=== PATIENT | female | born 1970 ===

== ENCOUNTER → 2023-03-06 | Outpatient (CLI) | payer OTHER ==
[2023-03-06 10:23] LABS: Basophils # (auto) 0 10 ^3/uL (0-0.2); Basophils % (auto) 0.8 % (0.0-2.0); Eosinophils # (auto) 0.1 10 ^3/uL (0-0.8); Eosinophils % (auto) 2.9 % (0.0-7.0); Hematocrit 39.1 % (36.0-46.0); Hemoglobin 13.4 g/dL (12.2-16.2); Lymphocytes % (auto) 21.2 % (10.0-50.0); Mean Corpuscular Hemoglobin 31.8 pg (28.0-32.0); Mean Corpuscular Hgb Conc. 34.2 g/dL (32.0-36.0); Mean Corpuscular Volume 93.2 fL (80.0-100.0); Monocytes # (auto) 0.3 10 ^3/uL (0-1.3); Monocytes % (auto) 7.6 % (0.0-12.0); Neutrophils % (auto) 67.5 % (37.0-80.0); Nucleated Red Blood Cells % 0.3 %; Red Cell Distribution Width 12.8 % (11.8-14.3); White Blood Cell 4.5 10^3/uL (4.4-10.8)
[2023-03-06 10:30] LABS: Urine Bacteria FEW /hpf (None Seen); Urine Blood Negative /uL (Negative); Urine Specific Gravity 1.019 (1.001-1.035); Urine WBC <1 /hpf (0 - 5)
[2023-03-06 11:08] LABS: Potassium 3.6 mmol/L (3.5-5.1)
[2023-03-06 11:18] LABS: Albumin 3.2 g/dL (3.4-5.0); BUN/Creatinine Ratio 26.1 (10.0-20.0); Bilirubin, Total 0.4 mg/dL (0.2-1.0); Calcium 8.6 mg/dL (8.5-10.1); Total Protein 7.2 g/dL (6.4-8.2)
== END | disposition home or self-care (01) ==
LOC: LAB 10:00
PROVIDERS: ATTEND Internal Medicine
DX: Z00.00 Encounter for general adult medical examination without abnormal findings (principal); E55.9 Vitamin D deficiency, unspecified; E78.5 Hyperlipidemia, unspecified
CPT/HCPCS: 36415; 80053; 80061; 81001; 82306; 84436; 84443; 85025; 87086

== ENCOUNTER → 2024-10-07 | Outpatient (CLI) | payer OTHER ==
[2024-10-07 12:03] LABS: Urine Bacteria None Seen /hpf (None Seen)
[2024-10-07 12:34] LABS: Basophils # (auto) 0 10 ^3/uL (0-0.2); Basophils % (auto) 0.6 % (0.0-2.0); Eosinophils # (auto) 0.2 10 ^3/uL (0-0.8); Eosinophils % (auto) 2.6 % (0.0-7.0); Lymphocytes # (auto) 1.5 10 ^3/uL (0.4-5.4); Mean Corpuscular Hgb Conc. 34.1 g/dL (32.0-36.0); Mean Corpuscular Volume 93.8 fL (80.0-100.0); Monocytes # (auto) 0.4 10 ^3/uL (0-1.3); Monocytes % (auto) 6.6 % (0.0-12.0); Neutrophils # (auto) 4.1 10 ^3/uL (1.6-8.6); Neutrophils % (auto) 66.2 % (37.0-80.0); Nucleated Red Blood Cells % 0.1 %; Platelet Count (auto) 205 10^3/uL (140-450); Red Blood Cells 4.69 10^6/uL (4.0-5.20); Red Cell Distribution Width 13.2 % (11.8-14.3); White Blood Cell 6.2 10^3/uL (4.4-10.8)
[2024-10-07 12:50] LABS: Urine Blood Negative /uL (Negative); Urine Clarity Clear (Clear); Urine Color Light-Yellow (Yellow); Urine Protein, UAD TRACE (Negative); Urine Specific Gravity 1.014 (1.001-1.035); Urine Squamous Epithelial Cell FEW /hpf (<5); Urine Urobilinogen Normal (Negative); Urine WBC 2 /hpf (0 - 5)
[2024-10-07 13:41] LABS: % Iron Saturation 40.3 % (15-50)
[2024-10-07 13:44] LABS: Free T3 3.26 pg/mL (2.3-4.2); Free T4 (Free Thyroxine) 1.1 ng/dL (0.89-1.76)
[2024-10-07 13:46] LABS: Albumin 4.6 g/dL (3.2-4.8); Alkaline Phosphatase 92 U/L (46-116); Anion Gap 9 (5-15); BUN/Creatinine Ratio 21.1 (10.0-20.0); Blood Urea Nitrogen 15 mg/dL (9-23); Calcium 10.4 mg/dL (8.7-10.4); Carbon Dioxide 27 mmol/L (20-31); Chloride 104 mmol/L (98-107); Creatine Kinase IFCC 59 U/L (34-145); Folate (Folic Acid) 17.84 ng/mL (>5.38); Glucose 95 mg/dL (74-106); Potassium 4.1 mmol/L (3.5-5.1); Sodium 140 mmol/L (136-145)
[2024-10-07 13:47] LABS: Aspartate Aminotransferase 36 U/L (13-40); Bilirubin, Total 0.7 mg/dL (0.2-1.0); HDL Cholesterol 50 mg/dL (40-59)
[2024-10-07 13:48] LABS: Alanine Aminotransferase 55 U/L (7-40); Cholesterol 286 mg/dL (< 200); LDL Cholesterol 223 mg/dL (< 100); Triglycerides 168 mg/dL (< 150)
== END | disposition home or self-care (01) ==
LOC: LAB 11:05
PROVIDERS: ATTEND Internal Medicine
DX: Z00.00 Encounter for general adult medical examination without abnormal findings (principal); E55.9 Vitamin D deficiency, unspecified; E78.5 Hyperlipidemia, unspecified; E66.9 Obesity, unspecified
CPT/HCPCS: 36415; 80053; 80061; 81001; 82306; 82550; 82607; 82728; 82746; 83036; 83540; 83550; 84439; 84443; 84481; 85025; 87086

== ENCOUNTER → 2024-10-07 | Outpatient (CLI) | payer OTHER | END | disposition home or self-care (01) | LOC: LAB 12:20 | PROVIDERS: ATTEND Internal Medicine | DX: Z12.11 Encounter for screening for malignant neoplasm of colon (principal) | CPT/HCPCS: 82270 ==

== ENCOUNTER 2024-10-12 18:24 | Inpatient (IN) | payer OTHER ==
[~2024-10-12] VITALS: Ht 157.5 cm; Wt 93.1 kg
--- NOTE | 2024-10-12 18:52 | ED.PDOC ---
HPI Comments 54y F who presents to the ED for chief complaint of chest pain. Pt states she has been having chest pain since Sep 25, when she states she went to [place] [facility] and diagnosed with altitude sickness. Pt states she has been having intermittent chest pain and states today, she started to have exacerbation of her chest pain and came to the ED for further evaluation. Pt states the pain is located by the L side of her chest, radiating to the L arm and to her lower pelvis area, press ure like in nature, intermittent, with no associated exacerbating or relieving factors. Pt has associated shortness of breath whenever she has been ambulating but otherwise denies any other symptoms at this time. Pt states she saw her PCP for her symptoms and states she had outpatient labs and chest x-ray but states she did not hear back so she came to the ED for further evaluation. Pt otherwise has noted history of HTN and anxiety and states she has not taken anxiety meds in many years. Pt otherwise denies any other symptoms at this time. 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 Family History Family History: Unknown Social History Smoker: Non-Smoker Alcohol: Denies ETOH Use Drugs: Denies Drug Use Lives In: Home Constitutional: denies: chills, diaphoresis, fatigue, fever, malaise, sweats, weakness, others EENTM: denies: blurred vision, double vision, ear bleeding, ear discharge, ear drainage, ear pain, ear ringing, eye pain, eye redness, hearing loss, mouth pain, mouth swelling, nasal discharge, nose bleeding, nose congestion, nose pain, photophobia, tearing, throat pain, throat swelling, voice changes, others Respiratory: reports: shortness of breath; denies: cough, hemoptysis, orthopnea, SOB at rest, SOB with excertion, stridor, wheezing, others Cardiovascular: reports: chest pain; denies: dizzy spells, diaphoresis, Dyspnea on exertion, edema, irregular heart beat, left arm pain, lightheadedness, palpitations, PND, syncope, others Gastrointestinal: denies: abdomen distended, abdominal pain, blood streaked bowels, constipated, diarrhea, dysphagia, difficulty swallowing, hematemesis, melena, nausea, poor appetite, poor fluid intake, rectal bleeding, rectal pain, vomiting, others Genitourinary: denies: abnormal vagina bleeding, burning, dyspareunia, dysuria, flank pain, frequency, hematuria, incontinence, pain, , vagina discharge, urgency, others Neurological: denies: dizziness, fainting, headache, left sided numbness, left sided weakness, numbness, paresthesia, pre-existing deficit, right sided numbness, right sided weakness, seizure, speech problems, tingling, tremors, weakness, others Musculoskeletal: denies: back pain, gout, joint pain, joint swelling, muscle pain, muscle stiffness, neck pain, others Integumetry: denies: bruises, change in color, change in hair/nails, dryness, laceration, lesions, lumps, rash, wounds, others Allergic/Immunocompromised: denies: Difficulty Healing, Frequent Infections, Hives, Itching, others Hematologic/Lymphatic: denies: anemia, blood clots, easy bleeding, easy bruising, swollen glands, others Endocrine: denies: excessive hunger, excessive sweating, excessive thirst, excessive urination, flushing, intolerance to cold, intolerance to heat, u nexplained weight gain, unexplained weight loss, others Psychiatric: denies: anxiety, bipolar disorder, depression, hopeless, panic disorder, schizophrenia, sleepless, suicidal, others All Other Systems: Reviewed and Negative Physical Exam General Appearance: Moderate Distress HEENT: Normal ENT Inspection, Pharynx Normal, TMs Normal Neck: Full Range of Motion, Non-Tender, Normal, Normal Inspection Respiratory: Chest Non-Tender, Lungs Clear, No Accessory Muscle Use, No Respiratory Distress, Normal Breath Sounds Cardiovascular: No Edema, No JVD, No Murmur, No Gallop, Normal Peripheral Pulses, Regular Rate/Rhythm Breast Exam: Deferred Gastrointestinal: No Organomegaly, Non Tender, No Pulsatile Mass, Normal Bowel Sounds, Soft Genitalia: Deferred Pelvic: Deferred Rectal: Deferred Extremities: No calf tenderness, Normal capillary refill, Normal inspection, Normal range of motion, Non-tender, No pedal edema Musculoskeletal : Apperance: Normal Neurologic: Alert, 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 Was a procedure done?: No CP Differential Dx Differential Diagnosis: A-fib, A-Flutter, Angina, Anxiety / Panic Attack, Atrial Dysrhythmia, Electrolyte Disorder Differential Diagnosis: HTN Essential, HTN Accelerated, HTN Encephalopathy, Medical NonCompliance Differential Diagnosis: Chest Wall Pain, Costochondritis X-Ray, Labs, Meds, VS Vital Signs Date Time Temp Pulse Resp B/P (MAP) Pulse Ox O2 Delivery O2 Flow Rate FiO2 10/12/24 18:28 72 10/12/24 18:24 99.4 72 20 187/116 (139) 98 Lab Test 10/12/24 19:32 10/12/24 18:44 Range/Units Troponin I High Sensitivity Pending < 3 L </=34 ng/L White Blood Count 6.9 4.4-10.8 10^3/uL Red Blood Count 4.72 4.0-5.20 10^6/uL Hemoglobin 15.2 12.2-16.2 g/dL Hematocrit 43.4 36.0-46.0 % Mean Corpuscular Volume 91.9 80.0-100.0 fL Mean Corpuscular Hemoglobin 32.1 H 28.0-32.0 pg Mean Corpuscular Hemoglobin Concent 34.9 32.0-36.0 g/dL Red Cell Distribution Width 12.7 11.8-14.3 % Platelet Count 207 140-450 10^3/uL Mean Platelet Volume 8.6 6.9-10.8 fL Neutrophils (%) (Auto) 68.1 37.0-80.0 % Lymphocytes (%) (Auto) 25.7 10.0-50.0 % Monocytes (%) (Auto) 4.5 0.0-12.0 % Eosinophils (%) (Auto) 1.2 0.0-7.0 % Basophils (%) (Auto) 0.5 0.0-2.0 % Neutrophils # (Auto) 4.7 1.6-8.6 10 ^3/uL Lymphocytes # (Auto) 1.8 0.4-5.4 10 ^3/uL Monocytes # (Auto) 0.3 0-1.3 10 ^3/uL Eosinophils # (Auto) 0.1 0-0.8 10 ^3/uL Basophils # (Auto) 0 0-0.2 10 ^3/uL Nucleated Red Blood Cells 0.1 % Sodium Level 141 136-145 mmol/L Potassium Level 3.7 3.5-5.1 mmol/L Chloride Level 106 98-107 mmol/L Carbon Dioxide Level 27 20-31 mmol/L Anion Gap 8 5-15 Blood Urea Nitrogen 13 9-23 mg/dL Creatinine 0.74 0.550-1.02 mg/dL Glomerular Filtration Rate Calc 97 >90 mL/min BUN/Creatinine Ratio 17.6 10.0-20.0 Serum Glucose 100 74-106 mg/dL Calcium Level 10.3 8.7-10.4 mg/dL Patient alert. Complaining of chest pain. Has been having chest pain on and off for a long time. Vitals stable. Anxious. Was given Ativan. Was given aspirin. Blood pressure elevated. Was given clonidine. EKG reviewed does show old changes. Explained to the patient. Time of 1ST Reevaluation: 19:20 Reevaluation 1ST: Unchanged Patient Education/Counseling: Diagnosis, Treatment Family Education/Counseling: No Family Present Departure 1 Departure Time of Disposition: 19:03 Impression: Primary Impression: Hypertensive urgency Additional Impression: Chest pain of unknown etiology Disposition: ADMITTED INPATIENT Admit to: Med Surg Condition: Guarded Critical Care Note Critical Care Time?: Yes (45 min-critical care time only) Stability Stability form required: No Heart Score Heart Score: Heart Score Response (Comments) Value History Slightly Suspicious 0 EKG Normal 0 Age 45-64 1 Risk Factors 1 or 2 risk factors 1 Troponin Normal limit 0 Total 2 I personally scribed for KAL ROSALES MD ([email or web address]) on 10/12/24 at 18:52. Electronically submitted by Meghan Moreno ([email or web address]). KAL ROSALES MD Oct 12, 2024 18:52
[2024-10-12 19:01] LABS: Basophils # (auto) 0 10 ^3/uL (0-0.2); Basophils % (auto) 0.5 % (0.0-2.0); Eosinophils # (auto) 0.1 10 ^3/uL (0-0.8); Eosinophils % (auto) 1.2 % (0.0-7.0); Hematocrit 43.4 % (36.0-46.0); Hemoglobin 15.2 g/dL (12.2-16.2); Lymphocytes # (auto) 1.8 10 ^3/uL (0.4-5.4); Lymphocytes % (auto) 25.7 % (10.0-50.0); Mean Corpuscular Hemoglobin 32.1 pg (28.0-32.0); Mean Corpuscular Hgb Conc. 34.9 g/dL (32.0-36.0); Mean Corpuscular Volume 91.9 fL (80.0-100.0); Monocytes # (auto) 0.3 10 ^3/uL (0-1.3); Monocytes % (auto) 4.5 % (0.0-12.0); Neutrophils # (auto) 4.7 10 ^3/uL (1.6-8.6); Neutrophils % (auto) 68.1 % (37.0-80.0); Nucleated Red Blood Cells % 0.1 %; Platelet Count (auto) 207 10^3/uL (140-450); Red Blood Cells 4.72 10^6/uL (4.0-5.20); Red Cell Distribution Width 12.7 % (11.8-14.3); White Blood Cell 6.9 10^3/uL (4.4-10.8)
[2024-10-12 19:13] LABS: Chloride 106 mmol/L (98-107); Potassium 3.7 mmol/L (3.5-5.1); Sodium 141 mmol/L (136-145)
[2024-10-12 19:14] LABS: Anion Gap 8 (5-15); Carbon Dioxide 27 mmol/L (20-31)
[2024-10-12 19:15] LABS: Calcium 10.3 mg/dL (8.7-10.4)
[2024-10-12 19:19] LABS: BUN/Creatinine Ratio 17.6 (10.0-20.0); Blood Urea Nitrogen 13 mg/dL (9-23); Glucose 100 mg/dL (74-106)
[2024-10-12] MEDS: LORazepam 2MG/ML-1ML VIAL IV ONE (20:02)
[2024-10-12] MEDS: ASPirin 325 MG TAB PO ONE (20:02)
[2024-10-12] MEDS: cloNIDine HCL 0.1 MG TAB PO ONE (20:17)
[2024-10-12 21:26] LABS: Urine Bacteria None Seen /hpf (None Seen)
[2024-10-12 21:33] LABS: Urine Blood Negative /uL (Negative); Urine Clarity Turbid (Clear); Urine Color Yellow (Yellow); Urine Mucus FEW (None Seen); Urine Protein, UAD 1+ (Negative); Urine Specific Gravity 1.016 (1.001-1.035); Urine Squamous Epithelial Cell MOD /hpf (<5); Urine Urobilinogen Normal (Negative); Urine WBC 4 /hpf (0 - 5)
--- NOTE | 2024-10-12 23:21 | DVHHP2 ---
History of Present Illness Reason for Visit: Hypertensive urgency History of Present Illness The patient is a 54-year-old female with past medical history of anxiety and hypertension who presented to [facility] ED with complaint of chest pain. Patient reports she has been having intermittent chest pain, left side of her chest, radiating to the left arm, lower pelvis area, rating 7/10 numeric scale, associated weakness, getting worse that prompted this visit. Patient was seen and evaluated in the ED, laboratory data shows WBC 6.9, platelets 207, sodium 141, potassium 3.7, BUN 13, creatinine 0.74, glucose 100, troponin 3, blood pressure 187/116 trending down to 145/87, heart rate 77, temperature 99.4 F, O2 saturation 98% on room air. Patient was given aspirin 325 mg p.o. x1, please see medication orders section in the computer. On my assessment, patient denied chest pain at this moment, no headache, no dizziness, no diaphoresis, no shortness of breath, no nausea, no vomiting, no fever, no chills. Patient was admitted for further evaluation and medical management. Past Medical History Anxiety, HTN Past Surgical History Denies all surgeries Family History Reviewed, noncontributory to the management of this case. Past Social History The patient lives at home, denies smoking, alcohol or illicit drugs abuse. Review of Systems Constitutional: Yes: Weakness; No: Fever, Chills, Sweats, Malaise, Other Eyes: No: Pain, Vision change, Conjunctivae inflammation, Eyelid inflammation, Other, Redness ENT: No: Ear pain, Ear discharge, Nose pain, Nose discharge, Nose congestion, Mouth pain, Mouth swelling, Throat pain, Throat swelling, Other Respiratory: No: Cough, Dry, Shortness of breath, SOB with excertion, Wheezing, Hemoptysis, Pleuritic Pain, Sputum, Wheezing, Other Cardiovascular: Chest Pain; No: Palpitations, Orthopnea, Paroxysmal Noc. Dy spnea, Edema, Lt Headedness, Other Gastrointestinal: No: Nausea, Vomiting, Abdominal Pain, Diarrhea, Constipation, Melena, Hematochezia, Other Genitourinary: No Dysuria, No Frequency, No Incontinence, No Hematuria, No Retention, No Other Musculoskeletal: No: other, neck pain, shoulder pain, arm pain, back pain, hand pain, leg pain, foot pain Skin: No: Rash, Lesions, Jaundice, Bruising, Other Neurological: No: Weakness, Numbness, Incoordination, Change in speech, Confusion, Seizures, Other Allergies: Coded Allergies: Acetaminophen (Verified Allergy, Unknown, 10/12/24) Diphenhydramine (Verified Allergy, Unknown, 10/12/24) Hydrocodone (Verified Allergy, Unknown, 10/12/24) Exam Vital Signs Vital Signs Date Time Temp Pulse Resp B/P (MAP) Pulse Ox O2 Delivery O2 Flow Rate FiO2 10/12/24 20:17 145/87 10/12/24 20:10 77 16 98 10/12/24 20:10 Room Air 10/12/24 18:24 99.4 General Appearance: Alert, Oriented X3, Cooperative, No acute distress HEENT: Atraumatic, PERRLA, EOMI, Mucous membr. moist/pink Respiratory: Clear to auscultation, Normal air movement Cardiovascular: Regular rate, Normal S1, Normal S2, No murmurs Abdominal: Normal bowel sounds, Soft, No tenderness, No hepatospenomegaly, No masses Extremities: No clubbing, No cyanosis, No edema, Normal pulses, No tenderness/swelling Skin: No rashes, No breakdown, No significant lesion Neuro: Normal gait, Normal speech, Strength at 5/5 X4 ext, Normal tone, Sensation intact, Cranial nerves 3-12 NL, Reflexes 2+ Psych/Mental Status: Mental status NL, Mood NL Labs/Xrays Labs Test 10/12/24 20:07 10/12/24 19:32 10/12/24 18:44 Range/Units Urine Color Yellow Yellow Urine Clarity Turbid H Clear Urine pH 6.0 5.0-9.0 Urine Specific [place] 1.016 1.001-1.035 Urine Protein 1+ H Negative Urine Ketones Trace Negative Urine Blood Negative Negative /uL Urine Nitrite Negative Negative Urine Bilirubin Negative Negative Urine Urobilinogen Normal Negative mg/dL Urine Leukocyte Esterase Negative Negative /uL Urine RBC 1 0 - 4 /hpf Urine WBC 4 0 - 5 /hpf Urine Squamous Epithelial Cells Mod <5 /hpf Urine Bacteria None seen None Seen /hpf Urine Mucus Few None Seen Urine Glucose Normal Normal mg/dL Troponin I High Sensitivity < 3 L </=34 ng/L White Blood Count 6.9 4.4-10.8 10^3/uL Red Blood Count 4.72 4.0-5.20 10^6/uL Hemoglobin 15.2 12.2-16.2 g/dL Hematocrit 43.4 36.0-46.0 % Mean Corpuscular Volume 91.9 80.0-100.0 fL Mean Corpuscular Hemoglobin 32.1 H 28.0-32.0 pg Mean Corpuscular Hemoglobin Concent 34.9 32.0-36.0 g/dL Red Cell Distribution Width 12.7 11.8-14.3 % Platelet Count 207 140-450 10^3/uL Mean Platelet Volume 8.6 6.9-10.8 fL Neutrophils (%) (Auto) 68.1 37.0-80.0 % Lymphocytes (%) (Auto) 25.7 10.0-50.0 % Monocytes (%) (Auto) 4.5 0.0-12.0 % Eosinophils (%) (Auto) 1.2 0.0-7.0 % Basophils (%) (Auto) 0.5 0.0-2.0 % Neutrophils # (Auto) 4.7 1.6-8.6 10 ^3/uL Lymphocytes # (Auto) 1.8 0.4-5.4 10 ^3/uL Monocytes # (Auto) 0.3 0-1.3 10 ^3/uL Eosinophils # (Auto) 0.1 0-0.8 10 ^3/uL Basophils # (Auto) 0 0-0.2 10 ^3/uL Nucleated Red Blood Cells 0.1 % Sodium Level 141 136-145 mmol/L Potassium Level 3.7 3.5-5.1 mmol/L Chloride Level 106 98-107 mmol/L Carbon Dioxide Level 27 20-31 mmol/L Anion Gap 8 5-15 Blood Urea Nitrogen 13 9-23 mg/dL Creatinine 0.74 0.550-1.02 mg/dL Glomerular Filtration Rate Calc 97 >90 mL/min BUN/Creatinine Ratio 17.6 10.0-20.0 Serum Glucose 100 74-106 mg/dL Calcium Level 10.3 8.7-10.4 mg/dL Assessment/Plan Assessment/Plan Hypertensive urgency Chest pain of unknown etiology Plan 1. Admit to telemetry unit 2. Breathing treatment 3. Pain control management 4. Management of fluids and electrolytes 5. Consultation for hospitalist 6. Diagnostic tests chest x-ray 7. DVT prophylaxis-on aspirin 8. Repeat labs CBC, CMP in a.m. 9. Continue with current medical management 10. Treatment plan discussed with patient and RN. Patient verbalized understanding. Plan discussed with: Patient, Other (RN) Problem List: (1) Hypertensive urgency (2) Chest pain of unknown etiology Date of Service: Oct 12, 2024 Billing Provider: DINESH ELLSWORTH DNP Common Visit Codes: [id number] INP/OBS CARE (HIGH) DINESH ELLSWORTH DNP Oct 12, 2024 23:21
[2024-10-12] MEDS ORDERED: MORPHINE SULFATE INJ 2 MG/ml SYRG IV PRN ×2 (23:30)
[2024-10-12] MEDS ORDERED: DOCUSATE SOD 100 MG CAP PO PRN (23:30)
[2024-10-12] MEDS ORDERED: NITROGLYCERIN 0.4 MG SL TAB SL PRN (23:30)
[2024-10-13] MEDS: hydrALAZINE HCL 20 MG/ML VL IV PRN (01:00)
[2024-10-13 05:23] LABS: Basophils # (auto) 0 10 ^3/uL (0-0.2); Basophils % (auto) 0.6 % (0.0-2.0); Eosinophils # (auto) 0.1 10 ^3/uL (0-0.8); Eosinophils % (auto) 1.1 % (0.0-7.0); Hematocrit 43.1 % (36.0-46.0); Lymphocytes # (auto) 1.8 10 ^3/uL (0.4-5.4); Lymphocytes % (auto) 21.2 % (10.0-50.0); Mean Corpuscular Hemoglobin 32.3 pg (28.0-32.0); Mean Corpuscular Hgb Conc. 34.8 g/dL (32.0-36.0); Mean Corpuscular Volume 92.8 fL (80.0-100.0); Monocytes # (auto) 0.5 10 ^3/uL (0-1.3); Monocytes % (auto) 5.6 % (0.0-12.0); Neutrophils # (auto) 6.1 10 ^3/uL (1.6-8.6); Neutrophils % (auto) 71.5 % (37.0-80.0); Nucleated Red Blood Cells % 0.3 %; Platelet Count (auto) 217 10^3/uL (140-450); Red Blood Cells 4.65 10^6/uL (4.0-5.20); Red Cell Distribution Width 12.9 % (11.8-14.3); White Blood Cell 8.5 10^3/uL (4.4-10.8)
[2024-10-13 05:47] LABS: Alanine Aminotransferase 39 U/L (7-40); Albumin 4.5 g/dL (3.2-4.8); Alkaline Phosphatase 88 U/L (46-116); Anion Gap 8 (5-15); Aspartate Aminotransferase 27 U/L (13-40); Bilirubin, Total 0.6 mg/dL (0.2-1.0); Blood Urea Nitrogen 10 mg/dL (9-23); Calcium 10.2 mg/dL (8.7-10.4); Carbon Dioxide 25 mmol/L (20-31); Chloride 105 mmol/L (98-107); Glucose 105 mg/dL (74-106); Potassium 3.2 mmol/L (3.5-5.1); Sodium 138 mmol/L (136-145); Total Protein 7.9 g/dL (5.7-8.2)
[2024-10-13] MEDS: SODIUM CHLOR 0.9% PF (SALINE LOCK) 10ML VIAL/SYR IV SCH (06:01)
[2024-10-13] MEDS: ASPirin 81 mg TAB PO SCH (11:07)
[2024-10-13] MEDS: LOSARTAN POTASSIUM 50 MG TAB PO SCH (11:07)
[2024-10-13] MEDS: CARVEDILOL 3.125 MG TAB PO SCH (11:08)
[2024-10-13 11:09] VITALS: BP 144/97; PULSE 90; RESP 18; TEMP 98.3; O2SAT 94
[2024-10-13] MEDS ORDERED: LOSA-535 PO (12:10)
[2024-10-13] MEDS ORDERED: CARV12.544 PO (12:10)
[2024-10-13] MEDS ORDERED: ESOM20CA PO (12:11)
[2024-10-13] MEDS ORDERED: HYDR12.59 PO (12:11)
[2024-10-13] MEDS ORDERED: ALPR1TAB2 PO (12:12)
[2024-10-13] MEDS: IBUPROFEN 600 MG TAB PO PRN (12:40)
[2024-10-13 12:47] VITALS: BP 136/89; PULSE 82; RESP 18; TEMP 97.9; O2SAT 98
--- NOTE | 2024-10-13 14:21 | DVHPN2 ---
Subjective Patient denies any symptoms at this time. Reviewed: Care Plan, H&P, Labs, Medications, Previous Orders Changes from previous H/P or p: No Changes Eyes: No Pain, No Vision change, No Conjunctivae inflammation, No Eyelid inflammation, No Other, No Redness ENT: No Ear pain, No Ear discharge, No Nose pain, No Nose discharge, No Nose congestion, No Mouth pain, No Mouth swelling, No Throat pain, No Throat swelling, No Other Cardiovascular: Chest Pain; No Palpitations, No Orthopnea, No Paroxysmal Noc. Dyspnea, No Edema, No Lt Headedness, No Other Respiratory: No Cough, No Dry, No Shortness of breath, No SOB with excertion, No Wheezing, No Hemoptysis, No Pleuritic Pain, No Sputum, No Other Gastrointestinal: No Nausea, No Vomiting, No Abdominal Pain, No Diarrhea, No Constipation, No Melena, No Hematochezia, No Other Genitourinary: No Dysuria, No Frequency, No Incontinence, No Hematuria, No Retention, No Other Musculoskeletal: No other, No neck pain, No shoulder pain, No arm pain, No back pain, No hand pain, No leg pain, No foot pain Skin: No Rash, No Lesions, No Jaundice, No Bruising, No Other Objective Vitals Vital Signs Date Time Temp Pulse Resp B/P (MAP) Pulse Ox O2 Delivery O2 Flow Rate FiO2 10/13/24 12:47 97.9 82 18 136/89 (105) 98 97.9 10/13/24 11:09 Room Air* 0 21 General Appearance: Alert, Oriented X3, Cooperative, No acute distress HEENT: Atraumatic, PERRLA Cardiovascular: Normal S1, Normal S2 Abdomen: Normal bowel sounds, Soft, No tenderness, No hepatospenomegaly, No masses Rectal: Normal inspection Genitourinary: No Apparent Abnormalities Musculoskeletal: Normal sensory function, Normal motor function Neuro: Normal gait, Normal speech Psych/Mental Status: Mental status NL, Mood NL Medications Current Medications Medications Dose Ordered Sig/Kg Route Start Time Stop Time Status Last Admin Dose Admin Carvedilol 3.125 mg Q12HR PO 10/13/24 10:00 10/13/24 11:08 3.125 MG Losartan Potassium 100 mg DAILY PO 10/13/24 10:00 10/13/24 11:07 100 MG Aspirin 81 mg DAILY PO 10/13/24 10:00 10/13/24 11:07 81 MG Hydralazine HCl 10 mg Q6HP PRN IV 10/12/24 23:30 10/13/24 09:05 10 MG Sodium Chloride 10 ml Q8HR IV 10/13/24 06:00 10/13/24 06:01 10 ML Ondansetron HCl 4 mg Q4HP PRN IV 10/12/24 23:30 Docusate Sodium 100 mg BIDPRN PRN PO 10/12/24 23:30 Nitroglycerin 0.4 mg Q5MINP PRN SL 10/12/24 23:30 Ibuprofen 600 mg Q6HP PRN PO 10/12/24 23:30 10/13/24 12:40 600 MG Laboratory Results Laboratory Tests 10/13/24 05:10 Chemistry Test 10/12/24 18:44 10/13/24 05:10 Calcium Level 10.3 mg/dL (8.7-10.4) 10.2 mg/dL (8.7-10.4) Albumin 4.5 g/dL (3.2-4.8) Total Protein 7.9 g/dL (5.7-8.2) LFT Test 10/13/24 05:10 Alanine Aminotransferase (ALT) 39 U/L (7-40) Alkaline Phosphatase 88 U/L (46-116) Aspartate Amino Transferase (AST) 27 U/L (13-40) Total Bilirubin 0.6 mg/dL (0.2-1.0) Urinalysis Test 10/12/24 20:07 Urine Color Yellow (Yellow) Urine Clarity Turbid (Clear) H Urine pH 6.0 (5.0-9.0) Urine Specific [place] 1.016 (1.001-1.035) Urine Protein 1+ (Negative) H Urine Ketones Trace (Negative) Urine Blood Negative /uL (Negative) Urine Nitrite Negative (Negative) Urine Bilirubin Negative (Negative) Urine Urobilinogen Normal mg/dL (Negative) Urine Leukocyte Esterase Negative /uL (Negative) Urine RBC 1 /hpf (0 - 4) Urine WBC 4 /hpf (0 - 5) Urine Squamous Epithelial Cells Mod /hpf (<5) Urine Bacteria None seen /hpf (None Seen) Urine Mucus Few (None Seen) Urine Glucose Normal mg/dL (Normal) Labs and/or images reviewed: Labs reviewed by me, Image(s) reviewed by me Assessment/Plan Assessment/Plan Impression: -acute coronary syndrome -anxiety disorder -primary hypertension -obesity -hypokalemia Plan: -after further discussion with the patient, reveals that she was awakened with 10/10 chest pressure, diaphoresis, and hypertension with pain radiating to her jaw and teeth. Patient also reports having generalized weakness, as well as left arm paresthesia. -cardiology consultation -echocardiogram -ACS protocol -restart Xanax -potassium replacement -repeat labs in a.m. Total time spent with patient discussing and formulating plan of care: 35 minutes. This medical document was created using an electronic medical record system with [employer] dictation system. Although this document has been carefully reviewed, there may still be some phonetic and typographical errors. These areas are purely typographical due to imperfections of the software programs, and do not reflect any compromise in the patient's medical care. Plan discussed with: Patient, Other (RN) My Orders Orders - MARY GRACE ANNE NP Procedure Category Date Status Time Echo 2d Mode Cardiac US 10/13/24 Taken DOP 13:23 Basic Metabolic Panel LAB 10/14/24 Verified 04:00 Magnesium LAB 10/14/24 Verified 04:00 Date of Service: Oct 13, 2024 Billing Provider: MARY GRACE ANNE NP Common Visit Codes: [id number] INP/OBS CARE(HIGH) MARY GRACE ANNE NP Oct 13, 2024 14:21
[2024-10-13 16:51] VITALS: BP 158/84; PULSE 86; RESP 18; TEMP 97.2; O2SAT 96
[2024-10-13] MEDS: POTASSIUM EFFERVESENT TAB 25 MEQ PO ONE (18:21)
[2024-10-13] MEDS: ALPRAZolam 0.5 MG TAB PO PRN (18:32)
[2024-10-13 20:00] VITALS: PULSE 79; PULSE 90; RESP 17; O2SAT 98
[2024-10-13 20:49] VITALS: BP 140/85; PULSE 83; RESP 19; TEMP 98; O2SAT 94
[2024-10-13] MEDS: CALCIUM CARB 500 MG CHEW TAB PO PRN (21:46)
[2024-10-13] MEDS: ONDANSETRON HCL 4 MG/2 ML VIAL IV PRN (21:48)
[2024-10-14] VITALS (8 sets, daily range): BP systolic 109–143; BP diastolic 50–83; PULSE 65–87; RESP 18–20; TEMP 97.5–98; O2SAT 95–99
[2024-10-14 07:17] LABS: Anion Gap 8 (5-15); Carbon Dioxide 28 mmol/L (20-31); Chloride 106 mmol/L (98-107); Potassium 3.8 mmol/L (3.5-5.1); Sodium 142 mmol/L (136-145)
[2024-10-14 07:18] LABS: Calcium 9.6 mg/dL (8.7-10.4)
[2024-10-14 07:23] LABS: BUN/Creatinine Ratio 15.2 (10.0-20.0); Blood Urea Nitrogen 12 mg/dL (9-23); Glucose 99 mg/dL (74-106)
[2024-10-14 09:05] LABS: Triglycerides 102 mg/dL (< 150)
[2024-10-14 09:07] LABS: HDL Cholesterol 44 mg/dL (40-59); LDL Cholesterol 169 mg/dL (< 100)
[2024-10-14 09:08] LABS: Cholesterol 217 mg/dL (< 200)
--- NOTE | 2024-10-14 10:58 | ECG ---
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
--- NOTE | 2024-10-14 11:34 | DVHINCON2 ---
Date Seen: Oct 14, 2024 Referring Physician SHENG Ellis Reason for Consultation ACS History of Present Illness This is a 54-year-old female patient who presents to the emergency room with chief complaint chest pain. The patient reports that this is the second episode of chest pain that she has experienced in the last two weeks. Initially she describes chest pain on September 29, 2024 while on vacation in [place], [place]. At that time, she states that she was sleeping and suddenly woke up feeling chest pain along with bilateral arm numbness, and jaw pain. She states that she checked her blood pressure noticed that it was elevated (SBP 170's) so she took her antihypertensives and went to sleep. She states that when she woke up the pain was no longer there so she did not go for any further evaluation. The chest pain came back on 10/12/24. She describes it as unprovoked, pressure-like in nature, left-sided with radiation to her left arm. She denies any associated symptoms. She came to the emergency room for further evaluation. Initial twelve lead electrocardiogram reveals normal sinus rhythm with nonspecific ST segment changes to inferior and septal leads. Initial troponin level negative. Significant past medical history includes hypertension, GERD, anxiety, and obesity. The patient also mentions following up with a target protection specialist in 2012 in which she states she was told she has a "leaky valve". She states that she has not followed up with a target protection specialist since then. She also reports significant family history with her father having a myocardial infarction and expiring at 49 years of age. Past Medical History Past medical history reviewed. No other significant than mentioned above. Past Surgical History Bilateral breast implants in 2013 Tummy tuck Left knee meniscus repair Partial hysterectomy Family History: Cardiovascular disease G8 FATHER Cerebrovascular accident (CVA) G8 BROTHER FH: heart attack G8 FATHER Hypertension G8 MOTHER 19 CHILD Thyroid disease G8 MOTHER Family History Family history reviewed. Social History Denies the use of tobacco, alcohol or illicit drugs. Allergies: Coded Allergies: Acetaminophen (Verified Allergy, Unknown, 10/12/24) Diphenhydramine (Verified Allergy, Unknown, 10/12/24) Hydrocodone (Verified Allergy, Unknown, 10/12/24) Home Meds Reported Medications Alprazolam (Xanax) 1 Mg Tab, 1 MG PO HS, TAB 10/13/24 Esomeprazole Magnesium Trihydr (Nexium) 20 Mg Cap, 20 MG PO DAILY, CAP 10/13/24 Hydrochlorothiazide (Hydrochlorothiazide) 12.5 Mg Cap, 12.5 MG PO DAILY for 30 Days, MG 10/13/24 Losartan Potassium (Losartan Potassium) 100 Mg Tab, 100 MG PO DAILY for 30 Days, MG 10/13/24 Carvedilol (Carvedilol) 12.5 Mg Tab, 12.5 MG PO Q12HR for 30 Days, MG 10/13/24 Home Meds Home medications reviewed. Current Medications Current Medications Medications (Trade) Dose Ordered Sig/Kg Route PRN Reason Start Time Stop Time Status Last Admin Alprazolam (Xanax Tablet) 0.5 mg [id number] PRN PO ANXIETY 10/13/24 14:30 10/13/24 18:32 Calcium Carbonate (Tums) 500 mg Q6HP PRN PO FOR STOMACH DISTRESS 10/13/24 21:45 10/13/24 21:46 Review of Systems Constitutional: No symptom reported Ears, Nose, & Throat: No symptom reported Eyes: No symptom reported Neurological: No symptoms reported Pulmonary/Respiratory: No symptoms reported Cardiovascular: Chest pain Gastrointestinal: No symptom reported Genitourinary: No symptom reported Musculoskeletal: No symptom reported Skin: No symptom reported Psychiatric: No symptom reported Endocrine: No symptom reported Hematologic/Lymphatic: No symptom reported Vital Signs Vital Signs Date Time Temp Pulse Resp B/P (MAP) Pulse Ox O2 Delivery O2 Flow Rate FiO2 10/14/24 08:49 97.5 67 18 138/80 (99) 97 97.5 10/14/24 08:10 Room Air* 0 21 Physical Exam General Appearance: Cooperative. Well-developed. Well-nourished. No acute distress. Pulmonary/Respiratory: Clear, bilateral breaths sounds. Cardiovascular/Chest: Regular rate and rhythm. Peripheral Pulses: 2+ Radial (R). 2+ Radial (L). 2+ Pedal (R). 2+ Pedal (L) Abdominal Exam: Normal bowel sounds. Ankle Exam: Negative ankle edema Lower extremities: Negative lower extremity edema Neuro/Mental Status: A/OX4, coherent. Thoughts/Psych: Normal thought pattern. Appropriate mood and affect. Good judgment and insight. Appearance: No acute distress. Skin Exam: Normal inspection. Normal color. Warm and dry. Labs/Diagnostic Data Labs Test 10/14/24 05:56 10/13/24 05:10 10/12/24 20:07 10/12/24 19:32 Range/Units Sodium Level 142 136-145 mmol/L Potassium Level 3.8 3.5-5.1 mmol/L Chloride Level 106 98-107 mmol/L Carbon Dioxide Level 28 20-31 mmol/L Anion Gap 8 5-15 Blood Urea Nitrogen 12 9-23 mg/dL Creatinine 0.79 0.550-1.02 mg/dL Glomerular Filtration Rate Calc 90 >90 mL/min BUN/Creatinine Ratio 15.2 10.0-20.0 Serum Glucose 99 74-106 mg/dL Calcium Level 9.6 8.7-10.4 mg/dL Magnesium Level 2.0 1.6-2.6 mg/dL Triglycerides Level 102 < 150 mg/dL Cholesterol Level 217 H < 200 mg/dL LDL Cholesterol 169 H < 100 mg/dL HDL Cholesterol 44 40-59 mg/dL Thyroid Stimulating Hormone (TSH) 1.59 0.55-4.78 uIU/mL White Blood Count 8.5 4.4-10.8 10^3/uL Red Blood Count 4.65 4.0-5.20 10^6/uL Hemoglobin 15.0 12.2-16.2 g/dL Hematocrit 43.1 36.0-46.0 % Mean Corpuscular Volume 92.8 80.0-100.0 fL Mean Corpuscular Hemoglobin 32.3 H 28.0-32.0 pg Mean Corpuscular Hemoglobin Concent 34.8 32.0-36.0 g/dL Red Cell Distribution Width 12.9 11.8-14.3 % Platelet Count 217 140-450 10^3/uL Mean Platelet Volume 8.5 6.9-10.8 fL Neutrophils (%) (Auto) 71.5 37.0-80.0 % Lymphocytes (%) (Auto) 21.2 10.0-50.0 % Monocytes (%) (Auto) 5.6 0.0-12.0 % Eosinophils (%) (Auto) 1.1 0.0-7.0 % Basophils (%) (Auto) 0.6 0.0-2.0 % Neutrophils # (Auto) 6.1 1.6-8.6 10 ^3/uL Lymphocytes # (Auto) 1.8 0.4-5.4 10 ^3/uL Monocytes # (Auto) 0.5 0-1.3 10 ^3/uL Eosinophils # (Auto) 0.1 0-0.8 10 ^3/uL Basophils # (Auto) 0 0-0.2 10 ^3/uL Nucleated Red Blood Cells 0.3 % Total Bilirubin 0.6 0.2-1.0 mg/dL Aspartate Amino Transferase (AST) 27 13-40 U/L Alanine Aminotransferase (ALT) 39 7-40 U/L Alkaline Phosphatase 88 46-116 U/L Total Protein 7.9 5.7-8.2 g/dL Albumin 4.5 3.2-4.8 g/dL Urine Color Yellow Yellow Urine Clarity Turbid H Clear Urine pH 6.0 5.0-9.0 Urine Specific [place] 1.016 1.001-1.035 Urine Protein 1+ H Negative Urine Ketones Trace Negative Urine Blood Negative Negative /uL Urine Nitrite Negative Negative Urine Bilirubin Negative Negative Urine Urobilinogen Normal Negative mg/dL Urine Leukocyte Esterase Negative Negative /uL Urine RBC 1 0 - 4 /hpf Urine WBC 4 0 - 5 /hpf Urine Squamous Epithelial Cells Mod <5 /hpf Urine Bacteria None seen None Seen /hpf Urine Mucus Few None Seen Urine Glucose Normal Normal mg/dL Troponin I High Sensitivity < 3 L </=34 ng/L Assessment Chest pain, rule out coronary ischemia Hypertensive urgency Dyslipidemia, newly diagnosed Hypokalemia, resolved Obesity Anxiety Plan/Recommendation We will continue with the following plan/recommendations (Dr. Boyce): * Echocardiogram to evaluate cardiac function * Aggressive BP control * Lipid-lowering agent * Risk factor modifications, counseled * BP control * Dietary and lifestyle changes * Treadmill stress test Patient seen and examined at bedside with . We will schedule the patient for a treadmill stress test at first availability. Thank you for allowing us to care for this patient. Please call with any questions or concerns. Critical care time spent: 40 minutes This medical document was created using an electronic medical record system with voice recognition software and computerized dictation system. Although this document has been carefully reviewed, there might still be some phonetic and typographical errors. Occasional wrong-word or ``sound-alike substitutions may have occurred due to the inherent limitations of voice recognition software. These areas are purely typographical due to imperfections of the software programs and do not reflect any compromise in the patient's medical care. Please read the chart carefully and recognize, using context, where these substitutions have occurred. Plan discussed with: Patient NYHA Physical activity limitations: NA Date of Service: Oct 14, 2024 Billing Provider: LEONELA BOYCE MD Cardiology Common Codes: [id number] INP/OBS CARE (High) Cardiology Consultation Codes: [id number] CONSULT <45MIN SEAN MOLINA [employer] Oct 14, 2024 11:34
--- NOTE | 2024-10-14 16:48 | DVHPN2 ---
Subjective Seen and examined at bedside. For stress test today. Reviewed: Care Plan, H&P, Labs, Medications, Previous Orders Changes from previous H/P or p: No Changes Eyes: No Pain, No Vision change, No Conjunctivae inflammation, No Eyelid inflammation, No Other, No Redness ENT: No Ear pain, No Ear discharge, No Nose pain, No Nose discharge, No Nose congestion, No Mouth pain, No Mouth swelling, No Throat pain, No Throat swelling, No Other Cardiovascular: No Chest Pain, No Palpitations, No Orthopnea, No Paroxysmal Noc. Dyspnea, No Edema, No Lt Headedness, No Other Respiratory: No Cough, No Dry, No Shortness of breath, No SOB with excertion, No Wheezing, No Hemoptysis, No Pleuritic Pain, No Sputum, No Other Gastrointestinal: No Nausea, No Vomiting, No Abdominal Pain, No Diarrhea, No Constipation, No Melena, No Hematochezia, No Other Genitourinary: No Dysuria, No Frequency, No Incontinence, No Hematuria, No Retention, No Other Musculoskeletal: No other, No neck pain, No shoulder pain, No arm pain, No back pain, No hand pain, No leg pain, No foot pain Skin: No Rash, No Lesions, No Jaundice, No Bruising, No Other Objective Vitals Vital Signs Date Time Temp Pulse Resp B/P (MAP) Pulse Ox O2 Delivery O2 Flow Rate FiO2 10/14/24 13:00 97.7 65 18 143/77 (99) 98 97.7 10/14/24 08:10 Room Air* 0 21 Intake/Output Intake and Output 10/14/24 07:00 Intake Total 800 ml Balance 800 ml Intake Oral 800 ml # Voids 7 General Appearance: Alert, Oriented X3, Cooperative, No acute distress HEENT: Atraumatic, PERRLA Cardiovascular: Normal S1, Normal S2 Abdomen: Normal bowel sounds, Soft, No tenderness, No hepatospenomegaly, No masses Rectal: Normal inspection Genitourinary: No Apparent Abnormalities Musculoskeletal: Normal sensory function, Normal motor function Neuro: Normal gait, Normal speech Psych/Mental Status: Mental status NL, Mood NL Medications Current Medications Medications Dose Ordered Sig/Kg Route Start Time Stop Time Status Last Admin Dose Admin Carvedilol 3.125 mg Q12HR PO 10/13/24 10:00 10/14/24 08:00 3.125 MG Losartan Potassium 100 mg DAILY PO 10/13/24 10:00 10/14/24 08:00 100 MG Aspirin 81 mg DAILY PO 10/13/24 10:00 10/14/24 07:59 81 MG Hydralazine HCl 10 mg Q6HP PRN IV 10/12/24 23:30 10/13/24 09:05 10 MG Sodium Chloride 10 ml Q8HR IV 10/13/24 06:00 10/14/24 15:46 10 ML Ondansetron HCl 4 mg Q4HP PRN IV 10/12/24 23:30 10/13/24 21:48 4 MG Docusate Sodium 100 mg BIDPRN PRN PO 10/12/24 23:30 Nitroglycerin 0.4 mg Q5MINP PRN SL 10/12/24 23:30 Ibuprofen 600 mg Q6HP PRN PO 10/12/24 23:30 10/14/24 09:35 600 MG Alprazolam 0.5 mg [id number] PRN PO 10/13/24 14:30 10/13/24 18:32 0.5 MG Calcium Carbonate 500 mg Q6HP PRN PO 10/13/24 21:45 10/13/24 21:46 500 MG Atorvastatin Calcium 40 mg HS PO 10/14/24 22:00 Laboratory Results Laboratory Tests 10/13/24 05:10 10/14/24 05:56 Chemistry Test 10/14/24 05:56 Calcium Level 9.6 mg/dL (8.7-10.4) Magnesium Level 2.0 mg/dL (1.6-2.6) Lipid panel Test 10/14/24 05:56 Cholesterol Level 217 mg/dL (< 200) H HDL Cholesterol 44 mg/dL (40-59) Triglycerides Level 102 mg/dL (< 150) HgA1c, TSH Test 10/14/24 05:56 Thyroid Stimulating Hormone (TSH) 1.59 uIU/mL (0.55-4.78) Urinalysis Test 10/12/24 20:07 Urine Color Yellow (Yellow) Urine Clarity Turbid (Clear) H Urine pH 6.0 (5.0-9.0) Urine Specific [place] 1.016 (1.001-1.035) Urine Protein 1+ (Negative) H Urine Ketones Trace (Negative) Urine Blood Negative /uL (Negative) Urine Nitrite Negative (Negative) Urine Bilirubin Negative (Negative) Urine Urobilinogen Normal mg/dL (Negative) Urine Leukocyte Esterase Negative /uL (Negative) Urine RBC 1 /hpf (0 - 4) Urine WBC 4 /hpf (0 - 5) Urine Squamous Epithelial Cells Mod /hpf (<5) Urine Bacteria None seen /hpf (None Seen) Urine Mucus Few (None Seen) Urine Glucose Normal mg/dL (Normal) Assessment/Plan Assessment/Plan -acute coronary syndrome -Stress test -anxiety disorder -primary hypertension -obesity - 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
[2024-10-14] MEDS: ATORVASTATIN 20 MG TAB PO SCH (21:46)
[2024-10-15] VITALS (7 sets, daily range): BP systolic 107–153; BP diastolic 43–107; PULSE 62–85; RESP 16–18; TEMP 97.9–98.1; O2SAT 97–100
--- NOTE | 2024-10-15 08:47 | DVHSR ---
APPROVED REPORT EXAM: LIMITED Two-dimensional and M-mode echocardiogram with Doppler and color Doppler. Blood Pressure: 136/89 mmHg INDICATION ACS RISK FACTORS Height: 62, Weight: 203 DIMENSIONS LVDd4.2 (3.8-5.7cm)LA (2D)4.0 (1.9-4.0cm)Aortic Root3.2 (2.0-3.7cm) LVDs2.9 (2.5-4.0cm)LA (MM) (1.9-4.0cm)Aortic Cusp Exc1.9 (1.5-2.0cm) EF (%) 60.0 (55-70%)Rt. Atrium (1.9-4.0cm)Asc. Aorta3.5 cm Mitral Valve MitralMitral Stenosis E/A ratio0.02D MVAcm2 Aortic Valve Aortic ValveAortic Stenosis LVOT Diameter2.0 (1.8-2.4cm)Doppler AVAcm2 Pulmonic Valve V20.83m/s Tricuspid Valve TR Velocity2.11m/s [id number] LEFT VENTRICLE Left ventricle is of normal size. Left ventricular wall thickness is normal. Ejection fraction is l ikely preserved. The study is suboptimal to assess for regional wall motion abnormalities. Diastoli c function is not well assessed. RIGHT VENTRICLE The right ventricle isn't well visualized. ATRIA The left atrium is of normal size. Right atrium is not well visualized. MITRAL VALVE Normal structure and function. PULMONIC VALVE Likely normal. TRICUSPID VALVE Likely of normal structure and function. There is mild tricuspid regurgitation. PA systolic pressur e is estimated at 26 mm Hg. AORTIC VALVE Normal structure and function. GREAT VESSELS Aortic root is of normal size. PERICARDIAL EFFUSION No significant pericardial effusion. IVC is of normal size and collapses normally with inspiration. Other Information Technically limited study due to body habitus and patient has large breast implants. Conclusion The study is very technically limited. The left ventricle is of normal size and likely normal systolic function. The study is suboptimal to assess for wall motion abnormalities. The right ventricle isn't well visualized. No hemodynamically significant valvular disease. PA systolic pressure is estimated at 26 mm Hg.
--- NOTE | 2024-10-15 11:27 | DVHCARD ---
Cardiology Stress Test [place] Treadmill Stress Test [place] Referring MD: CHANDNI Brice Protocol: Angelo (without cardiolite) Reason for referral: Chest Pain Target heart Rate:@85%: 142 Percent MPHR: 168 METS: 10.4 Resting Heart rate: 76 Resting Blood Pressure: 146/107 Exercise Heart Rate: 184 Exercise Blood Pressure: 196/117 Baseline EKG: Normal sinus rhythm Stress EKG: Sinus tachycardia Functional Capacity: Good Normal Heart Rate Response: Adequate Blood Pressure Response: Hypertensive Clinical response: Non-ischemic Arrhythmia?: Yes (PACs) Cardiolite Injected?: No ST-T Changes: Non/Minimal Probability of Inducible Ische: Low Date of Service: Oct 15, 2024 Billing Provider: LEONELA BOYCE MD Cardiology Common Codes: PROCEDURE ONLY Treadmill w/o Cardiolite: [id number], INTERP, RPT SEAN BRICE Oct 15, 2024 11:27
--- NOTE | 2024-10-15 11:33 | DVHPN2 ---
Consult Progress Note Subjective Patient reports: Feels better Other Systems: Patient denies any cardiac symptoms during assessment or overnight. Objective vital signs Vital Sign Date Time Temp Pulse Resp B/P (MAP) Pulse Ox O2 Delivery O2 Flow Rate FiO2 10/15/24 09:04 98.0 62 16 153/87 (109) 98 98.0 10/14/24 20:00 Room Air* 0 21 Total Intake and Output 10/14/24 10/14/24 10/15/24 15:00 23:00 07:00 Intake Total 1000 ml 700 ml Balance 1000 ml 700 ml medications Current Medications Medications Dose Ordered Sig/Kg Route Start Time Stop Time Status Last Admin Dose Admin Carvedilol 3.125 mg Q12HR PO 10/13/24 10:00 10/14/24 08:00 3.125 MG Losartan Potassium 100 mg DAILY PO 10/13/24 10:00 10/14/24 08:00 100 MG Aspirin 81 mg DAILY PO 10/13/24 10:00 10/14/24 07:59 81 MG Hydralazine HCl 10 mg Q6HP PRN IV 10/12/24 23:30 10/13/24 09:05 10 MG Sodium Chloride 10 ml Q8HR IV 10/13/24 06:00 10/15/24 05:44 10 ML Ondansetron HCl 4 mg Q4HP PRN IV 10/12/24 23:30 10/13/24 21:48 4 MG Docusate Sodium 100 mg BIDPRN PRN PO 10/12/24 23:30 Nitroglycerin 0.4 mg Q5MINP PRN SL 10/12/24 23:30 Ibuprofen 600 mg Q6HP PRN PO 10/12/24 23:30 10/14/24 09:35 600 MG Alprazolam 0.5 mg [id number] PRN PO 10/13/24 14:30 10/14/24 18:05 0.5 MG Calcium Carbonate 500 mg Q6HP PRN PO 10/13/24 21:45 10/13/24 21:46 500 MG Atorvastatin Calcium 40 mg HS PO 10/14/24 22:00 10/14/24 21:46 40 MG Examination: GENERAL:Normal, LUNGS:Normal, CVS:Normal, NEURO:Normal laboratory and microbiology Laboratory Tests 10/14/24 05:56 10/13/24 05:10 Test 10/14/24 05:56 Range/Units Serum Glucose 99 74-106 mg/dL Problem List/Assessment/Plan Problem List/Assessment/Plan Chest pain, rule out coronary ischemia Hypertensive urgency, resolved Dyslipidemia, newly diagnosed Hypokalemia, resolved Obesity Anxiety Plan/Recommendation (Dr. Boyce): * Echocardiogram reveals EF approximately 60% according to documented dimensions. The study is technically limited, the left ventricle is of normal size in the likely normal systolic function. * Aggressive BP control * Lipid-lowering agent * Risk factor modifications, counseled * BP control * Dietary and lifestyle changes The patient underwent a treadmill stress test in which no ST segment changes were seen on ECG. Patient denied any chest pain throughout entirety of test. There is no further inpatient cardiac workup indicated at this time. Thank you for allowing us to care for this patient. Please call with any questions or concerns. This medical document was created using an electronic medical record system with voice recognition software and computerized dictation system. Although this document has been carefully reviewed, there might still be some phonetic and typographical errors. Occasional wrong-word or ``sound-alike substitutions may have occurred due to the inherent limitations of voice recognition software. These areas are purely typographical due to imperfections of the software programs and do not reflect any compromise in the patient's medical care. Please read the chart carefully and recognize, using context, where these substitutions have occurred. Plan discussed with: Patient Date of Service: Oct 15, 2024 Billing Provider: LEONELA BOYCE MD Common Visit Codes: [id number] INP/OBS CARE(HIGH) SEAN MOLINA [facility] Oct 15, 2024 11:33
[2024-10-15] MEDS ORDERED: ATOR20TA50 PO (14:28)
--- NOTE | 2024-10-15 14:31 | DVHDS2 ---
Discharge Summary Date of Admission Oct 12, 2024 at 23:16 Date of Discharge: Oct 15, 2024 Labs/Diagnostic Data: Laboratory Results Test 10/14/24 05:56 10/13/24 05:10 10/12/24 20:07 10/12/24 19:32 Sodium Level 142 mmol/L (136-145) Potassium Level 3.8 mmol/L (3.5-5.1) Chloride Level 106 mmol/L (98-107) Carbon Dioxide Level 28 mmol/L (20-31) Anion Gap 8 (5-15) Blood Urea Nitrogen 12 mg/dL (9-23) Creatinine 0.79 mg/dL (0.550-1.02) Glomerular Filtration Rate Calc 90 mL/min (>90) BUN/Creatinine Ratio 15.2 (10.0-20.0) Serum Glucose 99 mg/dL (74-106) Calcium Level 9.6 mg/dL (8.7-10.4) Magnesium Level 2.0 mg/dL (1.6-2.6) Triglycerides Level 102 mg/dL (< 150) Cholesterol Level 217 mg/dL (< 200) LDL Cholesterol 169 mg/dL (< 100) HDL Cholesterol 44 mg/dL (40-59) Thyroid Stimulating Hormone (TSH) 1.59 uIU/mL (0.55-4.78) White Blood Count 8.5 10^3/uL (4.4-10.8) Red Blood Count 4.65 10^6/uL (4.0-5.20) Hemoglobin 15.0 g/dL (12.2-16.2) Hematocrit 43.1 % (36.0-46.0) Mean Corpuscular Volume 92.8 fL (80.0-100.0) Mean Corpuscular Hemoglobin 32.3 pg (28.0-32.0) Mean Corpuscular Hemoglobin Concent 34.8 g/dL (32.0-36.0) Red Cell Distribution Width 12.9 % (11.8-14.3) Platelet Count 217 10^3/uL (140-450) Mean Platelet Volume 8.5 fL (6.9-10.8) Neutrophils (%) (Auto) 71.5 % (37.0-80.0) Lymphocytes (%) (Auto) 21.2 % (10.0-50.0) Monocytes (%) (Auto) 5.6 % (0.0-12.0) Eosinophils (%) (Auto) 1.1 % (0.0-7.0) Basophils (%) (Auto) 0.6 % (0.0-2.0) Neutrophils # (Auto) 6.1 10 ^3/uL (1.6-8.6) Lymphocytes # (Auto) 1.8 10 ^3/uL (0.4-5.4) Monocytes # (Auto) 0.5 10 ^3/uL (0-1.3) Eosinophils # (Auto) 0.1 10 ^3/uL (0-0.8) Basophils # (Auto) 0 10 ^3/uL (0-0.2) Nucleated Red Blood Cells 0.3 % Total Bilirubin 0.6 mg/dL (0.2-1.0) Aspartate Amino Transferase (AST) 27 U/L (13-40) Alanine Aminotransferase (ALT) 39 U/L (7-40) Alkaline Phosphatase 88 U/L (46-116) Total Protein 7.9 g/dL (5.7-8.2) Albumin 4.5 g/dL (3.2-4.8) Urine Color Yellow (Yellow) Urine Clarity Turbid (Clear) Urine pH 6.0 (5.0-9.0) Urine Specific [place] 1.016 (1.001-1.035) Urine Protein 1+ (Negative) Urine Ketones Trace (Negative) Urine Blood Negative /uL (Negative) Urine Nitrite Negative (Negative) Urine Bilirubin Negative (Negative) Urine Urobilinogen Normal mg/dL (Negative) Urine Leukocyte Esterase Negative /uL (Negative) Urine RBC 1 /hpf (0 - 4) Urine WBC 4 /hpf (0 - 5) Urine Squamous Epithelial Cells Mod /hpf (<5) Urine Bacteria None seen /hpf (None Seen) Urine Mucus Few (None Seen) Urine Glucose Normal mg/dL (Normal) Troponin I High Sensitivity < 3 ng/L (</=34) Other Laboratory Tests 10/14/24 05:56 10/13/24 05:10 Brief Hx & Hospital Course: This is a 54-year-old female patient who presents to the emergency room with chief complaint chest pain. The patient reports that this is the second episode of chest pain that she has experienced in the last two weeks. Initially she describes chest pain on September 29, 2024 while on vacation in [place], [place]. At that time, she states that she was sleeping and suddenly woke up feeling chest pain along with bilateral arm numbness, and jaw pain. She states that she checked her blood pressure noticed that it was elevated (SBP 170's) so she took her antihypertensives and went to sleep. She states that when she woke up the pain was no longer there so she did not go for any further evaluation. The chest pain came back on 10/12/24. She describes it as unprovoked, pressure-like in nature, left-sided with radiation to her left arm. She denies any associated symptoms. She came to the emergency room for further evaluation. Initial twelve lead electrocardiogram reveals normal sinus rhythm with nonspecific ST segment changes to inferior and septal leads. Initial troponin level negative. Significant past medical history includes hypertension, GERD, anxiety, and obesity. The patient also mentions following up with a automotive production worker in 2012 in which she states she was told she has a "leaky valve". She states that she has not followed up with a automotive production worker since then. She also reports significant family history with her father having a myocardial infarction and expiring at 49 years of age. Patient underwent exercise stress test, tolerated well. No ST changes. Patient started on Lipitor for bedtime. Patient needs to see PCP for CMP in 1 week to monitor LFTs. Condition at Discharge: Stable Final Diagnosis/Problems List -acute coronary syndrome -Stress test negative -anxiety disorder -primary hypertension -dyslipidemia -obesity - Clinical Psychiatrist on weight loss -hypokalemia Discharge Disposition: Home Discharge Instruct/Medications Diet: Cardiac 2g Na,low cholest (2 gm sodium, low cholesterol) Follow Up/Referral: PCP in 1 week. Needs CMP in 1 week to monitor LFT Medications: See [facility] Discharge Statement: "Patient was advised to return to the ER or call 911 if any headaches, dizziness, shortness of breath, chest pain, abdominal pain, bleeding, fevers, or worsening of medical condition. Patient was counseled about treatment plan, medications, possible side effects, patientverbalized understanding. All questions were answered to the best of my ability. This discharge took greater then 30 minutes in planning, reviewing documentation, counseling the patient, and discussing with other team members." ASSESSMENT ASSESSMENT Assessment Date of Service: Oct 15, 2024 Billing Provider: ELLEN YEN MD Common Visit Codes: 75628-QEA/OBS DISCH DAY >30min ELLEN YEN MD Oct 15, 2024 14:31
== END 2024-10-15 17:48 | disposition home or self-care (01) | DRG 305 ==
LOC: ER 18:24 → TELE 23:16 → TELE-WESTW 10-13 09:55
PROVIDERS: ADMIT Nurse Practitioner Family; ATTEND Internal Medicine
DX: I16.0 Hypertensive urgency (principal); F41.9 Anxiety disorder, unspecified; E87.6 Hypokalemia; E78.5 Hyperlipidemia, unspecified; K21.9 Gastro-esophageal reflux disease without esophagitis; E66.9 Obesity, unspecified; Z68.37 Body mass index [BMI] 37.0-37.9, adult; Z88.6 Allergy status to analgesic agent; Z82.49 Family history of ischemic heart disease and other diseases of the circulatory system; Z88.5 Allergy status to narcotic agent; Z82.3 Family history of stroke; Z98.82 Breast implant status; Z90.711 Acquired absence of uterus with remaining cervical stump
CPT/HCPCS: 36415; 80048; 80053; 80061; 81001; 83735; 84443; 84484; 85025; 93005; 93017; 93306; 99291; G0378; J2405

== ENCOUNTER → 2025-01-22 | Outpatient (CLI) | payer OTHER ==
[~2025-01-22] MED LIST: ALPR1TAB2 PO; ATOR20TA50 PO; CARV12.544 PO; ESOM20CA PO; HYDR12.59 PO; LOSA-535 PO
[2025-01-22 09:56] LABS: Basophils # (auto) 0 10 ^3/uL (0-0.2); Basophils % (auto) 0.7 % (0.0-2.0); Eosinophils # (auto) 0.2 10 ^3/uL (0-0.8); Hemoglobin 13.5 g/dL (12.2-16.2); Lymphocytes # (auto) 1.4 10 ^3/uL (0.4-5.4); Lymphocytes % (auto) 19.9 % (10.0-50.0); Mean Corpuscular Hemoglobin 31.3 pg (28.0-32.0); Mean Corpuscular Hgb Conc. 34.6 g/dL (32.0-36.0); Mean Corpuscular Volume 90.5 fL (80.0-100.0); Monocytes # (auto) 0.5 10 ^3/uL (0-1.3); Neutrophils # (auto) 4.8 10 ^3/uL (1.6-8.6); Neutrophils % (auto) 69.4 % (37.0-80.0); Platelet Count (auto) 158 10^3/uL (140-450); Red Blood Cells 4.31 10^6/uL (4.0-5.20); Red Cell Distribution Width 13.1 % (11.8-14.3); White Blood Cell 6.9 10^3/uL (4.4-10.8)
[2025-01-22 10:38] LABS: Alanine Aminotransferase 17 U/L (7-40); Albumin 4.1 g/dL (3.2-4.8); Alkaline Phosphatase 75 U/L (46-116); Anion Gap 7 (5-15); Aspartate Aminotransferase 13 U/L (13-40); BUN/Creatinine Ratio 27.6 (10.0-20.0); Bilirubin, Total 0.5 mg/dL (0.2-1.0); Blood Urea Nitrogen 16 mg/dL (9-23); Calcium 9.5 mg/dL (8.7-10.4); Carbon Dioxide 28 mmol/L (20-31); Chloride 105 mmol/L (98-107); Glucose 91 mg/dL (74-106); Potassium 4.3 mmol/L (3.5-5.1); Sodium 140 mmol/L (136-145)
[2025-01-22 10:57] LABS: Triglycerides 138 mg/dL (< 150)
[2025-01-22 10:59] LABS: LDL Cholesterol 143 mg/dL (< 100)
[2025-01-22 11:00] LABS: Cholesterol 207 mg/dL (< 200); HDL Cholesterol 42 mg/dL (40-59)
== END | disposition home or self-care (01) ==
LOC: LAB 09:38
PROVIDERS: ATTEND Student in an Organized Health Care Education/Training Program
DX: Z13.6 Encounter for screening for cardiovascular disorders (principal); Z13.29 Encounter for screening for other suspected endocrine disorder
CPT/HCPCS: 36415; 80053; 80061; 84443; 85025

== ENCOUNTER → 2025-04-18 | Outpatient (CLI) | payer OTHER ==
[2025-04-18 10:34] LABS: Urine Protein, UAD 1+ (Negative)
[2025-04-18 10:48] LABS: Alanine Aminotransferase 26 U/L (7-40); Alkaline Phosphatase 90 U/L (46-116); Anion Gap 8 (5-15); BUN/Creatinine Ratio 16.9 (10.0-20.0); Blood Urea Nitrogen 12 mg/dL (9-23); Calcium 9.9 mg/dL (8.7-10.4); Carbon Dioxide 27 mmol/L (20-31); Chloride 107 mmol/L (98-107); Glucose 99 mg/dL (74-106); Potassium 4.1 mmol/L (3.5-5.1); Sodium 142 mmol/L (136-145); Total Protein 7.4 g/dL (5.7-8.2)
[2025-04-18 10:49] LABS: Albumin 4.6 g/dL (3.2-4.8); Bilirubin, Total 0.5 mg/dL (0.2-1.0); HDL Cholesterol 43 mg/dL (40-59)
[2025-04-18 10:50] LABS: Cholesterol 226 mg/dL (< 200); Triglycerides 154 mg/dL (< 150)
== END | disposition home or self-care (01) ==
LOC: LAB 10:01
PROVIDERS: ATTEND Internal Medicine
DX: E78.5 Hyperlipidemia, unspecified (principal); E55.9 Vitamin D deficiency, unspecified; E66.9 Obesity, unspecified; E03.5 Myxedema coma; R73.9 Hyperglycemia, unspecified
CPT/HCPCS: 36415; 80053; 80061; 81001; 82306; 83036; 84436; 84443; 84480; 87086